=== PATIENT | female | born 1990 | race Caucasian/White ===

== ENCOUNTER 2016-12-25 01:48 | Emergency (ER) | payer SELFPAY ==
[~2016-12-25] VITALS: Ht 167.6 cm; Wt 48.5 kg
[2016-12-25 01:52] VITALS: Ht 167.6 cm; Wt 48.5 kg
[2016-12-25] MEDS ORDERED: KETOROLAC 60 MG INJ IM STA (02:04)
[2016-12-25] MEDS ORDERED: morphine 10 MG INJ IM ONE (02:30)
--- NOTE | 2016-12-25 02:44 | RADRPT ---
PROCEDURE: XR left shoulder. CLINICAL INDICATION: Fall with left shoulder injury. TECHNIQUE: 2 views of the left shoulder were performed. COMPARISON: None. FINDINGS: Fracture of the distal left clavicle with about 2 shaft width inferior depression of the distal frag ment. IMPRESSION: Fracture of the distal left clavicle with inferior displacement of the distal fragment. RPTAT: [facility]. Physician Jhonny Date Time Electronically viewed and signed by Physician Jhonny on 12/25/2016 02:44 RS/
--- NOTE | 2016-12-25 02:45 | RADRPT ---
PROCEDURE: X-ray left clavicle CLINICAL INDICATION: Fall with injury to the left clavicle. TECHNIQUE: 2 views left clavicle. COMPARISON: None FINDINGS: Fracture distal left clavicle. There is about 2 shaft width inferior displacement of the distal frag ment. IMPRESSION: Fracture distal left clavicle, with depression of the distal fragment. RPTAT: [facility] Physician Jhonny Date Time Electronically viewed and signed by Jojo Casarez Physician on 12/25/2016 02:45 RS/
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
[2016-12-25] MEDS ORDERED: HYDR-902 PO (03:07)
[2016-12-25 03:41] VITALS: BP 108/70; PULSE 82; RESP 18; TEMP 98
== END 2016-12-25 03:42 | disposition home or self-care (01) ==
LOC: E/R 01:48
DX: S42.002A Fracture of unspecified part of left clavicle, initial encounter for closed fracture (principal); R40.2252 Coma scale, best verbal response, oriented, at arrival to emergency department; F17.210 Nicotine dependence, cigarettes, uncomplicated; R40.2362 Coma scale, best motor response, obeys commands, at arrival to emergency department; R40.2142 Coma scale, eyes open, spontaneous, at arrival to emergency department; V18.4XXA Pedal cycle driver injured in noncollision transport accident in traffic accident, initial encounter
CPT/HCPCS: 73000; 73030; 96372; 99284; J1885; J2270